=== PATIENT | male | born 2000 | race Two or more races ===

== ENCOUNTER 2024-08-13 02:57 | Emergency (ER) | payer OTHER, MEDICAID ==
[~2024-08-13] VITALS: Ht 172.7 cm; Wt 116.5 kg
--- NOTE | 2024-08-13 03:15 | ED.PDOC ---
History of Present Illness HPI Comments 24-year-old male with PMHx Asthma, HTN presents with a chief complaint of possible allergic reaction. Patient states that he woke up this morning and his eyes had pressure, his eyelids are itchy, and has congestion. Patients eyes are red at this time. Patient mentions that this happens whenever he is near dogs. Patient mentions that he was near dogs last night. Chief Complaint: Allergic Reaction Time Seen by MD: 03:09 Reviewed Notes: Medications, Allergies Allergies: Coded Allergies: Diphenhydramine (Verified Allergy, Unknown, 08/13/24) Uncoded Allergies: DOGS (Allergy, Unknown, 08/13/24) Information Source: Patient Mode of Arrival: Ambulatory Severity: Moderate Timing: Minutes Duration: Since onset Prehospital treatment: None Past Medical History PAST MEDICAL HISTORY: Asthma, HTN Surgical History: Denies all surgeries Family History Family History: Reviewed,noncontributory to illness Social History Smoker: Non-Smoker Alcohol: Denies ETOH Use Drugs: Denies Drug Use Lives In: Home Constitutional: denies: chills, diaphoresis, fatigue, fever, malaise, sweats, weakness, others EENTM: reports: eye redness; denies: blurred vision, double vision, ear bleeding, ear discharge, ear drainage, ear pain, ear ringing, eye pain, hearing loss, mouth pain, mouth swelling, nasal discharge, nose bleeding, nose congestion, nose pain, photophobia, tearing, throat pain, throat swelling, voice changes, others Respiratory: denies: cough, hemoptysis, orthopnea, SOB at rest, shortness of breath, SOB with excertion, stridor, wheezing, others Cardiovascular: denies: chest pain, dizzy spells, diaphoresis, Dyspnea on exertion, edema, irregular heart beat, left arm pain, lightheadedness, palpitations, PND, syncope, others Gastrointestinal: denies: abdomen distended, abdominal pain, blood streaked bowels, constipated, diarrhea, dysphagia, difficulty swallowing, hematemesis, melena, nausea, poor appetite, poor fluid intake, rectal bleeding, rectal pain, vomiting, others Genitourinary: denies: burning, dysuria, flank pain, frequency, hematuria, incontinence, penile discharge, penile sore, pain, testicle pain, testicle swelling, urgency, others Neurological: denies: dizziness, fainting, headache, left sided numbness, left sided weakness, numbness, paresthesia, pre-existing deficit, right sided numbness, right sided weakness, seizure, speech problems, tingling, tremors, weakness, others Musculoskeletal: denies: back pain, gout, joint pain, joint swelling, muscle pain, muscle stiffness, neck pain, others Integumetry: denies: bruises, change in color, change in hair/nails, dryness, laceration, lesions, lumps, rash, wounds, others Allergic/Immunocompromised: reports: Itching (EYES); denies: Difficulty Healing, Frequent Infections, Hives, others Hematologic/Lymphatic: denies: anemia, blood clots, easy bleeding, easy bruising, swollen glands, others Endocrine: denies: excessive hunger, excessive sweating, excessive thirst, excessive urination, flushing, intolerance to cold, intolerance to heat, un explained weight gain, unexplained weight loss, others Psychiatric: denies: anxiety, bipolar disorder, depression, hopeless, panic disorder, schizophrenia, sleepless, suicidal, others All Other Systems: Reviewed and Negative Physical Exam General Appearance: No Apparent Distress, Normal HEENT: Normal ENT Inspection, Pharynx Normal, TMs Normal Neck: Full Range of Motion, Non-Tender, Normal, Normal Inspection Respiratory: Chest Non-Tender, Lungs Clear, No Accessory Muscle Use, No Respiratory Distress, Normal Breath Sounds Cardiovascular: No Edema, No JVD, No Murmur, No Gallop, Normal Peripheral Pu lses, Regular Rate/Rhythm Breast Exam: Deferred Gastrointestinal: No Organomegaly, Non Tender, No Pulsatile Mass, Normal Bowel Sounds, Soft Genitalia: Deferred Pelvic: Deferred Rectal: Deferred Extremities: No calf tenderness, Normal capillary refill, Normal inspection, Normal range of motion, Non-tender, No pedal edema Musculoskeletal : Apperance: Normal Neurologic: Alert, 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 Was a procedure done?: No Differential Dx Considerations may include: Acute allergic reaction X-Ray, Labs, Meds, VS Vital Signs Date Time Temp Pulse Resp B/P (MAP) Pulse Ox O2 Delivery O2 Flow Rate FiO2 08/13/24 03:30 98.3 96 16 153/100 (117) 98 98.3 08/13/24 03:30 96 16 98 Room Air 08/13/24 03:08 98.3 96 16 153/100 (117) 98 08/13/24 03:08 16 98 Room Air* 0 21 Current Medications Medications (Trade) Dose Ordered Sig/Loretta Route Start Time Stop Time Status Last Admin Methylprednisolone Sodium Succinate (Solu Medrol) 125 mg ONCE ONCE IV 08/13/24 03:15 08/13/24 03:16 DC 08/13/24 03:34 Famotidine (Pepcid Injection) 20 mg ONCE ONCE IV 08/13/24 03:15 08/13/24 03:16 DC 08/13/24 03:30 Sodium Chloride 1,000 ml @ 1,000 mls/hr Q1H ONCE IV 08/13/24 03:15 08/13/24 04:14 DC 08/13/24 03:27 Time of 1ST Reevaluation: 03:39 Reevaluation 1ST: Unchanged Patient Education/Counseling: Diagnosis, Treatment, Prognosis Family Education/Counseling: No Family Present Departure 1 Departure Time of Disposition: 05:09 (Patient likely with an allergic reaction. Patient's symptoms are improving after receiving IV Benadryl. No sign of anaphylaxis) Impression: Primary Impression: Allergic reaction Qualified Codes: T78.40XA - Allergy, unspecified, initial encounter Disposition: HOME / SELF CARE / HOMELESS Condition: Stable Additional Instructions: You had an allergic reaction. You received medications in the ER. You were prescribed steroids and an epinephrine pain. Please use as directed. You should follow up with your regular doctor within one week to ensure you are doing better. You may benefit from an appointment with an Superintendent Operating. If your symptoms worsen, or you have any other concerns then please return to the ER. e-Prescriptions Epinephrine (Anaphylaxis) (Auvi-Q) 0.1 Mg/0.1 Ml Inj 0.1 MG IJ O PRN for 1 Day, #1 INJ Prov: EVERARDO AMADOR MD 08/13/24 Prednisone (Prednisone) 20 Mg Tab 40 MG PO DAILY for 5 Days, #10 MG Prov: EVERARDO AMADOR MD 08/13/24 Discharged With: Self Critical Care Note Critical Care Time?: No Stability Stability form required: No I personally scribed for EVERARDO AMADOR MD ([email or web address]) on 08/13/24 at 03:15. Electronically submitted by Ravi Bautista ([email or web address]). EVERARDO AMADOR MD Aug 13, 2024 03:15
[2024-08-13] MEDS: SODIUM CHLORIDE 0.9% 1,000 ML IV ONE (03:27)
[2024-08-13 03:30] VITALS: BP 153/100; PULSE 96; RESP 16; TEMP 98.3; O2SAT 98
[2024-08-13] MEDS: FAMOTIDINE (10MG/ML) 2ML VL IV ONE (03:30)
[2024-08-13] MEDS: methylPREDNISolone SOD SUCC 125 MG/2 ML VL IV ONE (03:34)
[2024-08-13] MEDS ORDERED: EPIN0.1I11 IJ (05:11)
[2024-08-13] MEDS ORDERED: PRED20TA2 PO (05:11)
== END 2024-08-13 06:03 | disposition home or self-care (01) ==
LOC: ER 02:57
DX: T78.40XA Allergy, unspecified, initial encounter (principal); J45.909 Unspecified asthma, uncomplicated; I10 Essential (primary) hypertension; Z88.8 Allergy status to other drugs, medicaments and biological substances; X58.XXXA Exposure to other specified factors, initial encounter
CPT/HCPCS: 96361; 96374; 96375; 99284; J2919; J3490

== ENCOUNTER 2025-05-20 11:52 | Emergency (ER) | payer OTHER, MEDICAID ==
[~2025-05-20] VITALS: Ht 175.3 cm; Wt 109.3 kg
[~2025-05-20 11:52] MED LIST: EPIN0.1I11 IJ; PRED20TA2 PO
[2025-05-20 12:04] VITALS: BP 122/81; PULSE 93; RESP 19; TEMP 98; O2SAT 97
[2025-05-20] MEDS: LIDOCAINE 5% TOPICAL PATCH TOP ONE (12:45)
[2025-05-20] MEDS: ACETAMINOPHEN 325 MG TAB PO ONE (12:45)
[2025-05-20] MEDS: KETOROLAC TROMETH 30 MG/ML 1ML VIAL IM ONE (12:45)
[2025-05-20] MEDS: CYCLOBENZAPRINE HCL 10 MG TAB PO ONE (12:45)
--- NOTE | 2025-05-20 12:54 | ED.PDOC ---
History of Present Illness HPI Comments 25-year-old male presents to the ER with no prior medical history associated with a chief complaint of RLE. Patient reports on having right include pain which radiate down to the right leg. Patient states on going to [place] for which was diagnosed with muscle spasms and was given ibuprofen. Patient notes that he is unable to walk and sitting worsens pain. Denies chills, fever, N/V/D, SOB, CP. No other associated symptoms, modifiers, recent injuries or sick contacts present at this time. Chief Complaint: Lower Extremity Time Seen by MD: 12:50 Reviewed Notes: Nurses Notes, Medications, Allergies Allergies: Coded Allergies: Diphenhydramine (Verified Allergy, Unknown, 08/13/24) Uncoded Allergies: DOGS (Allergy, Unknown, 08/13/24) Home Meds Active Scripts Epinephrine (Anaphylaxis) (Auvi-Q) 0.1 Mg/0.1 Ml Inj, 0.1 MG IJ O PRN for 1 Day, #1 INJ Prov:EVERARDO AMADOR MD 08/13/24 Prednisone (Prednisone) 20 Mg Tab, 40 MG PO DAILY for 5 Days, #10 MG Prov:EEVRARDO AMADOR MD 08/13/24 Information Source: Patient Mode of Arrival: Ambulatory Severity: Moderate Timing: Came on: Gradually Duration: Since onset Prehospital treatment: None Past Medical History PAST MEDICAL HISTORY: Asthma, HTN Surgical History: Denies all surgeries Family History Family History: Reviewed,noncontributory to illness, Unknown Social History Smoker: Non-Smoker Alcohol: Denies ETOH Use Drugs: Denies Drug Use Lives In: Home Constitutional: denies: chills, diaphoresis, fatigue, fever, malaise, sweats, weakness, others EENTM: denies: blurred vision, double vision, ear bleeding, ear discharge, ear drainage, ear pain, ear ringing, eye pain, eye redness, hearing loss, mouth pain, mouth swelling, nasal discharge, nose bleeding, nose congestion, nose pain, photophobia, tearing, throat pain, throat swelling, voice changes, others Respiratory: denies: cough, hemoptysis, orthopnea, SOB at rest, shortness of breath, SOB with excertion, stridor, wheezing, others Cardiovascular: denies: chest pain, dizzy spells, diaphoresis, Dyspnea on exertion, edema, irregular heart beat, left arm pain, lightheadedness, palpitations, PND, syncope, others Gastrointestinal: denies: abdomen distended, abdominal pain, blood streaked bowels, constipated, diarrhea, dysphagia, difficulty swallowing, hematemesis, melena, nausea, poor appetite, poor fluid intake, rectal bleeding, rectal pain, vomiting, others Genitourinary: denies: burning, dysuria, flank pain, frequency, hematuria, incontinence, penile discharge, penile sore, pain, testicle pain, testicle swelling, urgency, others Neurological: denies: dizziness, fainting, headache, left sided numbness, left sided weakness, numbness, paresthesia, pre-existing deficit, right sided numbness, right sided weakness, seizure, speech problems, tingling, tremors, weakness, others Musculoskeletal: reports: others (Right leg pain); denies: back pain, gout, joint pain, joint swelling, muscle pain, muscle stiffness, neck pain Integumetry: denies: bruises, change in color, change in hair/nails, dryness, laceration, lesions, lumps, rash, wounds, others Allergic/Immunocompromised: denies: Difficulty Healing, Frequent Infections, Hives, Itching, others Hematologic/Lymphatic: denies: anemia, blood clots, easy bleeding, easy bruising, swollen glands, others Endocrine: denies: excessive hunger, excessive sweating, excessive thirst, excessive urination, flushing, intolerance to cold, intolerance to heat, unexplained weight gain, unexplained weight loss, others Psychiatric: denies: anxiety, bipolar disorder, depression, hopeless, panic disorder, schizophrenia, sleepless, suicidal, others All Other Systems: Reviewed and Negative Physical Exam General Appearance: No Apparent Distress, Normal HEENT: Normal ENT Inspection, Pharynx Normal, TMs Normal Neck: Full Range of Motion, Non-Tender, Normal, Normal Inspection Respiratory: Chest Non-Tender, Lungs Clear, No Accessory Muscle Use, No Respiratory Distress, Normal Breath Sounds Cardiovascular: No Edema, No JVD, No Murmur, No Gallop, Normal Peripheral Pulses, Regular Rate/Rhythm Breast Exam: Deferred Gastrointestinal: No Organomegaly, Non Tender, No Pulsatile Mass, Normal Bowel Sounds, Soft Genitalia: Deferred Pelvic: Deferred Rectal: Deferred Extremities: No calf tenderness, Normal capillary refill, Normal inspection, Normal range of motion, Non-tender, No pedal edema Musculoskeletal : Apperance: Normal Neurologic: Alert, c software developer II-XII nml as Tested, No Motor Deficits, Normal Affect, Normal Mood, No Sensory Deficits Cerebellar Function: Normal Reflexes: Normal Skin: Dry, Normal Color, Warm Lymphatic: No Adenopathy Was a procedure done? Was a procedure done?: No Differential Dx Considerations may include: Muscle strain, sciatica, viral syndrome X-Ray, Labs, Meds, VS Vital Signs Date Time Temp Pulse Resp B/P (MAP) Pulse Ox O2 Delivery O2 Flow Rate FiO2 05/20/25 12:04 98.0 93 19 122/81 97 98.0 Current Medications Medications (Trade) Dose Ordered Sig/Loretta Route Start Time Stop Time Status Last Admin Acetaminophen (Tylenol Tablet) 650 mg ONCE ONCE PO 05/20/25 12:45 05/20/25 12:46 DC 05/20/25 12:45 Ketorolac Tromethamine (Toradol Injection) 15 mg ONCE ONCE IM 05/20/25 12:45 05/20/25 12:46 DC 05/20/25 12:45 Lidocaine (Lidoderm 5% Topical Patch) 1 patch ONCE ONCE TOP 05/20/25 12:45 05/20/25 12:46 DC 05/20/25 12:45 Cyclobenzaprine HCl (Flexeril Tablet) 10 mg ONCE ONCE PO 05/20/25 12:45 05/20/25 12:46 DC 05/20/25 12:45 Time of 1ST Reevaluation: 13:20 Reevaluation 1ST: Unchanged Patient Education/Counseling: Diagnosis, Treatment, Prognosis Family Education/Counseling: No Family Present SEPSIS Sepsis Screen Date sepsis recognized/suspect: May 20, 2025 Time Sepsis recognized/suspect: 1204 Recent Procedure: No On Antibiotic Therapy: No Respiratory Rate >20: No Heart Rate >90: Yes Temp<36 C (96.8 F) or >38.3 C: No SBP <90 or MAP <65 mmHG: No New Acute Mental Status Change: No Is the patient on CPAP, BIPAP,: No Vital Signs Date Time Temp Pulse Resp B/P (MAP) Pulse Ox O2 Delivery O2 Flow Rate FiO2 05/20/25 12:04 98.0 93 19 122/81 97 98.0 Medications Medications Dose Ordered Sig/Loretta Route Start Time Stop Time Status Last Admin Dose Admin Acetaminophen 650 mg ONCE ONCE PO 05/20/25 12:45 05/20/25 12:46 DC 05/20/25 12:45 Cyclobenzaprine HCl 10 mg ONCE ONCE PO 05/20/25 12:45 05/20/25 12:46 DC 05/20/25 12:45 Ketorolac Tromethamine 15 mg ONCE ONCE IM 05/20/25 12:45 05/20/25 12:46 DC 05/20/25 12:45 Lidocaine 1 patch ONCE ONCE TOP 05/20/25 12:45 05/20/25 12:46 DC 05/20/25 12:45 Departure 1 Departure Time of Disposition: 13:55 (Patient likely with sciatica. We will discharge patient home with medications) Impression: Primary Impression: Sciatica Qualified Codes: M54.31 - Sciatica, right side Disposition: 01 HOME / SELF CARE / HOMELESS Condition: Stable Referrals: CORONA COBB MD Additional Instructions: You likely have sciatica. You were prescribed medications. Please take as directed. For pain you can take the followinam: Ibuprofen 400mg with food Noon: Acetaminophen 1000mg 4pm: Ibuprofen 400mg with food 8pm: Acetaminophen 1000mg You should follow up with your regular doctor within one week to ensure you are doing better. If your symptoms worsen or you have any other concerns then please return to the ER. e-Prescriptions Cyclobenzaprine Hcl (Cyclobenzaprine Hcl) 10 Mg Tab 10 MG PO TID PRN for 7 Days, #21 TAB Prov: EVERARDO AMADOR MD 05/20/25 Lidocaine (LIDODERM 5% TOPICAL PATCH) 1 Patch Ph 1 PATCH TOP DAILY PRN for 14 Days, #30 PATCH 1 Refill Prov: EVERARDO AMADOR MD 05/20/25 Discharged With: Self Critical Care Note Critical Care Time?: No Stability Stability form required: No I personally scribed for EVERARDO AMADOR MD ([email or web address]) on 05/20/25 at 12:54. Electronically submitted by Jayy Medellin ([email or web address]). EVERRADO AMADOR MD May 20, 2025 12:54
[2025-05-20] MEDS ORDERED: CYCL-839 PO (13:57)
[2025-05-20] MEDS ORDERED: LIDO5DIS21 TOP (13:57)
== END 2025-05-20 14:24 | disposition home or self-care (01) ==
LOC: ER 11:52
DX: M54.31 Sciatica, right side (principal); J45.909 Unspecified asthma, uncomplicated; I10 Essential (primary) hypertension; Z79.52 Long term (current) use of systemic steroids; Z79.899 Other long term (current) drug therapy
CPT/HCPCS: 96372; 99284; J1885